=== PATIENT | female | born 1960 | race African-American/Black ===

== ENCOUNTER 2017-03-03 11:16 | Emergency (ER) | payer OTHER ==
--- NOTE | ~2017-03-03 | CR230 ---
[facility]. [facility] A Service of [facility] & [facility] RADIOLOGY TEXT RESULTS PATIENT: RATNA DIAZ LOCATION: SED : 60 UNIT #: [id number] AGE: [address]: Rhoda Rashid SEX: F ORDER DR: [id number] [address] [address] [id number] E MR#: [id number] Acc #: [id number] NAME: RATNA DIAZ : 1960 SEX: F STUDY DATE/TIME: 03/03/2017 11:24 UNIT: SED ROOM: STUDY DESCRIPTION: CR Shoulder Min 2 View Rt Attending Physician: Rhoda Rashid Pa-C Ordering Physician: Rhoda Rashid Pa-C Primary Care Phys[facility] REPORT This report is preliminary unless electronic signature is present. EXAM Right shoulder, 3 views. HISTORY 56-year-old female with shoulder pain today after falling on treadmill. No comparisons. FINDINGS There is some degenerative spurring of the distal clavicle. No fracture or dislocation. IMPRESSION No fracture or dislocation. Dictated by... Neal Clark M.D. THIS IS AN ELECTRONICALLY VERIFIED REPORT Neal Clark M.D. at 03/03/2017 4:52 PM Niurka TD: 03/03/2017 12:41 JOB #: [id number] MEDICAL IMAGING REPORT Page 1 of 1
--- NOTE | ~2017-03-03 | CR173 ---
[facility]. [facility] A Service of [facility] & [facility] RADIOLOGY TEXT RESULTS PATIENT: RATNA DIAZ LOCATION: SED : 60 UNIT #: [id number] AGE: [address]: Rhoda Rashid SEX: F ORDER DR: [id number] [address] [address] [id number] E MR#: [id number] Acc #: [id number] NAME: RATNA DIAZ : 1960 SEX: F STUDY DATE/TIME: 03/03/2017 UNIT: SED ROOM: STUDY DESCRIPTION: CR Knee 3 Views Rt Attending Physician: Rhoda Rashid Pa-C Ordering Physician: Rhoda Rashid Pa-C [facility] RE[facility] This report is preliminary unless electronic signature is present. EXAM Right knee 3 views, 03/03/2017 11:24 hours HISTORY 56-year-old woman who fell on a treadmill at [facility] 1 hour prior to admission. Knee pain. COMPARISON 10/20/2015 FINDINGS AP, crosstable lateral and sunrise views demonstrate interval total knee replacement with anatomic alignment. Hardware is intact. No fracture seen. A small suprapatellar bursa effusion is present. 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 There is anatomic alignment with small suprapatellar bursa effusion. No fracture or hardware failure is seen. Dictated by... Nicolle Roman M.D. THIS IS AN ELECTRONICALLY VERIFIED REPORT Nicolle Roman M.D. at 03/03/2017 2:29 PM MAURISIO/susana TD: 03/03/2017 12:52 JOB #: [id number] MEDICAL IMAGING REPORT Page 1 of 1
--- NOTE | ~2017-03-03 | CR172 ---
[facility]. [facility] A Service of [facility] & [facility] RADIOLOGY TEXT RESULTS PATIENT: RATNA DIAZ LOCATION: SED : 60 UNIT #: [id number] AGE: [address]: Rhoda Rashid SEX: F ORDER DR: [id number] [address] [address] [id number] E MR#: [id number] Acc #: [id number] NAME: RATNA DIAZ : 1960 SEX: F STUDY DATE/TIME: 03/03/2017 11:24 UNIT: SED ROOM: STUDY DESCRIPTION: CR Knee 3 Views Lt Attending Physician: Rhoda Rashid Pa-C Ordering Physician: Rhoda Rashid Pa-C [facility] REPORT This report is preliminary unless electronic signature is present. EXAM Left knee 3 views INDICATION 56-year-old female with knee pain for an hour after falling on treadmill. COMPARISON No comparisons. FINDINGS There is no fracture. There is minimal medial compartment degenerative change. No joint effusion. No dislocation. IMPRESSION No acute finding. Dictated by... Neal Clark M.D. THIS IS AN ELECTRONICALLY VERIFIED REPORT Neal Clark M.D. at 03/03/2017 4:52 PM Jamir TD: 03/03/2017 12:37 JOB #: [id number] MEDICAL IMAGING REPORT Page 1 of 1
[~2017-03-03 11:16] MED LIST: ANIMAL SHAPES1 EAC2; BACTRIM DS TABL1 TAB PO; DELTASONE20 MG PO; ESCITALOPRAM PO; FLOVENT DI50 MCG/DIS; HCTZ PO; IBUPROFEN PO; LEXAPRO; LISINOPRIL PO; LISINOPRIL/HCTZ PO; LOPERAMIDE PO; MACROBID PO; NAPROXEN PO; NEXIUM20 MG; NORCO 7.5-3251 EACH PO; NORCO1 TAB 10/3 PO; NORVASC10 MG PO; PAXIL PO; PERCOCET PO; PRILOSEC20 M1 PO; PRINIVIL5 MG PO; PROTONIX PO; PROZAC PO; SEROQUEL25 MG PO; TRAZODONE PO; VALIUM10 MG PO; VITAMIN B122500 MCG; WELLBUTRIN PO
[2017-03-03] MEDS ORDERED: AMLODIPINE BESY10 MG PO (11:19)
[2017-03-03] MEDS ORDERED: PRILOSEC PO (11:20)
[2017-03-03] MEDS ORDERED: CLARITIN10 M2 PO (11:20)
[2017-04-24] MEDS ORDERED: BUSPIRONE HCL7.5 MG PO (11:20)
[2017-04-24] MEDS ORDERED: VITAMIN B 12 (11:21)
[2017-04-24] MEDS ORDERED: ZESTORETIC 20-1 EAC1 PO (12:56)
[2017-04-24] MEDS ORDERED: HYDROCHLOROTH12.5 M1 PO (13:00)
[2017-04-24] MEDS ORDERED: MAPAP500 MG PO (13:01)
== END 2017-03-03 12:36 | disposition home or self-care (01) ==
LOC: SED 11:16
DX: S80.02XA Contusion of left knee, initial encounter (principal); S80.01XA Contusion of right knee, initial encounter; S40.011A Contusion of right shoulder, initial encounter; I10 Essential (primary) hypertension; K21.9 Gastro-esophageal reflux disease without esophagitis; F32.9 Major depressive disorder, single episode, unspecified; Y93.A1 Activity, exercise machines primarily for cardiorespiratory conditioning
CPT/HCPCS: 73030; 73562; 96372; 99284; J1885

== ENCOUNTER → 2017-04-24 | Day surgery (SDC) | payer OTHER ==
[~2017-04-24] MED LIST changes: +AMLODIPINE BESY10 MG PO; +BUSPIRONE HCL7.5 MG PO; +CLARITIN10 M2 PO; +HYDROCHLOROTH12.5 M1 PO; +MAPAP500 MG PO; +PRILOSEC PO; +VITAMIN B 12; +ZESTORETIC 20-1 EAC1 PO
--- NOTE | ~2017-04-24 | OR ---
Unit #: [id number] #: [id number] Patient: RATNA DIAZ [id number] [address] [address] [id number] O MR#: [id number] NAME: RATNA DIAZ ROOM: Date of Procedure: 04/24/2017 Admission Date: 04/24/2017 Surgeon: Dave Jones M.D. : 1960 Attending Physician: Dave Jones M.D. Referring Physician: Dave Jones M.D. Primary Care Physician: [facility] OPERATIVE REPORT PRIMARY CARE PHYSICIAN [facility]. PREOPERATIVE DIAGNOSIS Colorectal cancer screening. POSTOPERATIVE DIAGNOSES Non-thrombosed external hemorrhoid and cecal polyp. PROCEDURES PERFORMED Colonoscopy to cecum with snare polypectomy x1. ANESTHESIA Monitored anesthesia. INDICATIONS FOR PROCEDURE A 56-year-old female, sent for screening colonoscopy. She is otherwise asymptomatic. DESCRIPTION OF PROCEDURE The patient was admitted to [facility], positively identified, and transported to the endoscopy suite and after appropriate monitoring and positioning, she was sedated by the nurse project leader. On rectal examination, she had an external hemorrhoidal skin tag that was non-thrombosed. Digital examination otherwise unremarkable. Colonoscope was passed through the anal verge throughout the extent of the colon to the cecum. In the base of the cecum, she had a pedunculated polyp which was removed by hot snare polypectomy. The polyp was recovered and sent to the laboratory. On antegrade and retrograde visualization throughout the colon, no other findings were noted. In the rectal vault, there was no internal hemorrhoidal disease. The patient tolerated the procedure well and transported to recovery in stable condition. Findings and postoperative instructions were discussed with her son through the transfer engineer. We will call her with results of the pathological evaluation of the polyp and recommend followup at that time. Dictated by... Dave Jones M.D. RS/modl Unit #: [id number] #: [id number] Patient: RATNA DIAZ TD: 04/25/2017 01:29 JOB #: [id number] OPERATIVE REPORT Page 1 of 1 X Dave Jones MD OPERATIVE NOTE
--- NOTE | ~2017-04-24 | HP ---
Unit #: [id number] #: [id number] Patient: RATNA DIAZ [id number] [address] [address] [id number] O MR#: [id number] NAME: RATNA DIAZ ROOM: Age: 56 Sex: F Admission Date: 04/24/2017 : 1960 Attending Physician: Dave Jones M.D. Referring Physician: Dave Jones M.D. Primary Care Physician: [facility] HISTORY AND PHYSICAL HISTORY OF PRESENT ILLNESS Ms. Humphries is a 56-year-old female sent for her 10-year colorectal screening. She denies a family history of colorectal disease and is otherwise asymptomatic. PAST MEDICAL HISTORY 1. Hypertension. 2. Depression. 3. Sleep apnea. 4. section. 5. Tubal ligation. 6. Eye surgery. 7. Gastric bypass. 8. Cholecystectomy. 9. Uterine ablation. 10. Abdominoplasty. 11. Bladder suspension. 12. Knee surgery on two occasions. 13. Reflux. MEDICATIONS 1. Omeprazole. 2. Lisinopril and hydrochlorothiazide. 3. Vitamin B. 4. Centrum Silver. 5. Loratadine. 6. Tylenol. 7. Buspirone. ALLERGIES Morphine. IMMUNIZATIONS She has had a recent flu vaccine but never had a pneumonia vaccine. FAMILY HISTORY Heart disease, diabetes, and depression. SOCIAL HISTORY Single with two children. Denies the use of alcohol or tobacco. She is currently on disability. REVIEW OF SYSTEMS Unremarkable. Unit #: [id number] #: [id number] Patient: RATNA DIAZ PHYSICAL EXAMINATION VITAL SIGNS: She is 5 feet 2 and 280 pounds. Blood pressure 157/96, heart rate 88, respirations 18, and temperature 97. GENERAL: Awake, alert, and oriented. HEENT: Unremarkable. CARDIAC: Regular rate and rhythm. LUNGS: Clear. ABDOMEN: Soft. EXTREMITIES: No edema. NEUROLOGIC: Grossly intact. ASSESSMENT AND PLAN A 56-year-old female sent for colorectal cancer screening. I discussed the procedure including the risks, benefits, complications, and bowel preparation. She understands and agrees to proceed. Dictated by Dave Jones M.D. RS/am TD: 04/24/2017 15:08 JOB #: [id number] HISTORY AND PHYSICAL Page 1 of 1 X Dave Jones MD HISTORY AND PHYSICAL
== END | disposition home or self-care (01) ==
LOC: COPS 03-14 07:30
PROVIDERS: Specialist
PROC: 0DBH8ZX Excision of Cecum, Via Natural or Artificial Opening Endoscopic, Diagnostic (ICD-10-PCS; principal; 2017-04-24 14:00)
DX: Z12.11 Encounter for screening for malignant neoplasm of colon (principal); K63.5 Polyp of colon; K64.4 Residual hemorrhoidal skin tags; I10 Essential (primary) hypertension; F32.9 Major depressive disorder, single episode, unspecified; G47.30 Sleep apnea, unspecified; K21.9 Gastro-esophageal reflux disease without esophagitis; Z79.899 Other long term (current) drug therapy; M19.90 Unspecified osteoarthritis, unspecified site; E66.9 Obesity, unspecified; Z68.43 Body mass index [BMI] 50.0-59.9, adult; Z83.3 Family history of diabetes mellitus; Z84.89 Family history of other specified conditions; Z81.8 Family history of other mental and behavioral disorders; Z98.84 Bariatric surgery status; Z98.51 Tubal ligation status; Z90.49 Acquired absence of other specified parts of digestive tract; Z88.5 Allergy status to narcotic agent
CPT/HCPCS: 88305; J2250